=== PATIENT | female | born 1950 | race Caucasian/White ===

== ENCOUNTER 2018-08-30 04:59 | Emergency (ER) | payer OTHER ==
[~2018-08-30] VITALS: Ht 157.5 cm; Wt 42.2 kg
[~2018-08-30 04:59] MED LIST: BENTYL 20 MG TA20 M1 PO; CLONAZEPAM 1 MG1 M1 PO; DIFLUCAN200 MG PO; LASIX 40 MG TAB40 M2 PO; NABUMETONE 750750 M1 PO; ONDANSETRON HCL4 M2 PO; POTASSIUM99 M1 PO; PREMARIN0.625 MG PO; PREVACID15 MG PO; QVAR REDIHALE10.6 GM INH; REMERON15 MG PO; ROBAXIN 750 MG750 M1 PO; SAVELLA50 MG PO; THEO-24200 MG PO; VICODIN PO; VITAMIN D3400 UNIT PO; XANAX 0.25 MG0.25 MG PO; [UNRECOGNIZED DRUG - OTHER] PO
[2018-08-30 05:28] LABS: HEMATOCRIT 30.2 % (37.0-47.0); HEMOGLOBIN 10.2 gm/dL (12.0-15.0); MCH 31.2 pg (26.0-34.0); MCHC 33.7 g/dL (28.0-37.0); MCV 92.3 fL (80.0-100.0); RBC 3.27 mil/uL (4.20-5.00); RDW 12.6 % (10.5-14.5)
[2018-08-30 05:33] LABS: ANION GAP 7 mmol/L (7-16); BUN 15 mg/dL (7-18); CALCIUM 9.6 mg/dL (8.5-10.1); CHLORIDE 100 mmol/L (98-107); CO2 34 mmol/L (21-32); CREATININE 1.3 mg/dL (0.6-1.0); GLUCOSE 87 mg/dL (74-106); POTASSIUM 3.8 mmol/L (3.5-5.1); SODIUM 141 mmol/L (136-145)
[2018-08-30 05:41] LABS: ALBUMIN 2.9 g/dL (3.4-5.0); LIPASE 269 U/L (73-393); SGOT 17 U/L (15-37); SGPT 16 U/L (30-65); TOTAL BILIRUBIN 0.3 mg/dL (<0.1-1.0); TOTAL PROTEIN 6.9 g/dL (6.4-8.2); TROPONIN-I <0.06 ng/mL (<0.06)
[2018-08-30] MEDS ORDERED: OXYCONTIN10 M1 PO (06:22)
[2018-08-30 06:48] LABS: URINE BILIRUBIN NEGATIVE (Negative); URINE BLOOD NEGATIVE (Negative); URINE CLARITY CLEAR; URINE COLOR YELLOW; URINE GLUCOSE-RANDOM* NEGATIVE (Negative); URINE KETONES NEGATIVE (Negative); URINE LEUKOCYTES-REFLEX NEGATIVE (Negative); URINE NITRITE-REFLEX NEGATIVE (Negative); URINE PROTEIN (DIPSTICK) NEGATIVE (Negative); URINE UROBILINOGEN 0.2 E.U./dl (0.2-1.0)
[2018-08-30] MEDS ORDERED: BISACODYL SUPP10 MG RECTAL (07:48)
[2018-08-30] MEDS ORDERED: CITRATE OF MAG296 ML PO (07:48)
[2018-08-30] MEDS ORDERED: SENNA-DOCUSATE1 EAC1 PO (07:48)
[2018-08-30] MEDS ORDERED: ZOFRAN ODT4 MG PO (07:49)
[2018-08-30 08:09] VITALS: BP 146/55
--- NOTE | 2018-08-30 10:50 | EKG ---
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
== END 2018-08-30 08:09 | disposition still patient (30) ==
LOC: ER 04:59
PROVIDERS: Student in an Organized Health Care Education/Training Program
DX: K59.00 Constipation, unspecified (principal); M79.7 Fibromyalgia; G43.909 Migraine, unspecified, not intractable, without status migrainosus; K21.9 Gastro-esophageal reflux disease without esophagitis; J44.9 Chronic obstructive pulmonary disease, unspecified; M19.90 Unspecified osteoarthritis, unspecified site; Z90.710 Acquired absence of both cervix and uterus; Z88.1 Allergy status to other antibiotic agents; Z88.2 Allergy status to sulfonamides; Z88.6 Allergy status to analgesic agent; Z88.8 Allergy status to other drugs, medicaments and biological substances

== ENCOUNTER 2020-06-13 19:43 | Inpatient (IN) | payer OTHER ==
[~2020-06-13] VITALS: Ht 157.5 cm; Wt 52.2 kg
[2020-06-13 19:43] VITALS: BP 70/38
[~2020-06-13 19:43] MED LIST changes: +BISACODYL SUPP10 MG RECTAL; +CITRATE OF MAG296 ML PO; +OXYCONTIN10 M1 PO; +SENNA-DOCUSATE1 EAC1 PO; +ZOFRAN ODT4 MG PO
[2020-06-13 20:31] LABS: ABSOLUTE NEUTROPHILS 2.5 thou/uL (1.4-8.2); EOSINOPHILS 11.2 % (0.0-3.0); HEMATOCRIT 34.6 % (37.0-47.0); HEMOGLOBIN 11.7 gm/dL (12.0-15.0); LYMPHOCYTES 28.5 % (24.0-44.0); MCH 31.1 pg (26.0-34.0); MCHC 33.7 g/dL (28.0-37.0); MCV 92.2 fL (80.0-100.0); MONOCYTES 6.2 % (1.0-8.0); PLATELET COUNT 222 thou/uL (150-400); POLYS 53.1 % (36.0-66.0); RBC 3.76 mil/uL (4.20-5.00); RDW 12.2 % (10.5-14.5); WBC 4.7 thou/uL (4.0-11.0)
[2020-06-13 20:48] LABS: ANION GAP 7 mmol/L (7-16); BUN 24 mg/dL (7-18); CALCIUM 10.1 mg/dL (8.5-10.1); CHLORIDE 104 mmol/L (98-107); CO2 28 mmol/L (21-32); CREATININE 1.6 mg/dL (0.6-1.0); GLUCOSE 91 mg/dL (74-106); POTASSIUM 4.8 mmol/L (3.5-5.1); SODIUM 139 mmol/L (136-145)
[2020-06-13 21:05] LABS: ALBUMIN 4.1 g/dL (3.4-5.0); LIPASE 47 U/L (73-393); MAGNESIUM 1.9 mg/dL (1.8-2.4); SGOT 18 U/L (15-37); SGPT 21 U/L (30-65); TOTAL BILIRUBIN 0.3 mg/dL (0.2-1.0); TOTAL PROTEIN 7.5 g/dL (6.4-8.2); TROPONIN-I <0.06 ng/mL (<0.06)
[2020-06-13 21:05] LABS: URINE BILIRUBIN NEGATIVE (Negative); URINE BLOOD 1+ (Negative); URINE CLARITY CLEAR; URINE COLOR YELLOW; URINE GLUCOSE-RANDOM* NEGATIVE (Negative); URINE KETONES NEGATIVE (Negative); URINE LEUKOCYTES-REFLEX 3+ (Negative); URINE NITRITE-REFLEX NEGATIVE (Negative); URINE PROTEIN (DIPSTICK) TRACE (Negative); URINE SPECIFIC GRAVITY 1.025 (1.005-1.035); URINE UROBILINOGEN 0.2 E.U./dl (0.2-1.0)
[2020-06-13 21:13] LABS: AMP/METHAMP Negative (Negative); BARBITURATES Negative (Negative); BENZODIAZEPINES POSITIVE (Negative); COCAINE Negative (Negative); METHADONE Negative (Negative); OPIATES POSITIVE (Negative); PCP Negative (Negative)
[2020-06-13 21:17] LABS: SQUAMOUS 4-10 Moderate /LPF (0-3); URINE WBC-REFLEX >25 Many /HPF (0-5)
[2020-06-13 21:18] LABS: CASTS None Seen /LPF (None Seen); CRYSTALS None Seen /LPF (None Seen); URINE RBC 3-10 Few /HPF (0-2)
[2020-06-13 21:42] LABS: APTT 25.8 Seconds (24.5-32.8); PROTIME 10.7 Seconds (9.3-11.4)
[2020-06-13 21:56] VITALS: BP 123/55
[2020-06-13 22:09] VITALS: BP 143/64
[2020-06-13 22:35] VITALS: BP 147/104
[2020-06-14 02:17] LABS: HEMATOCRIT 35.1 % (37.0-47.0); HEMOGLOBIN 11.5 gm/dL (12.0-15.0); MCH 30.7 pg (26.0-34.0); MCHC 32.8 g/dL (28.0-37.0); MCV 93.8 fL (80.0-100.0); RBC 3.74 mil/uL (4.20-5.00); RDW 12.2 % (10.5-14.5); WBC 6.6 thou/uL (4.0-11.0)
[2020-06-14 02:28] LABS: ANION GAP 9 mmol/L (7-16); BUN 24 mg/dL (7-18); CALCIUM 9.6 mg/dL (8.5-10.1); CHLORIDE 104 mmol/L (98-107); CHOLESTEROL 165 mg/dL (<200); CO2 26 mmol/L (21-32); CREATININE 1.8 mg/dL (0.6-1.0); GLUCOSE 122 mg/dL (74-106); HDL CHOLESTEROL 45 mg/dL (>40); LDL CHOLESTEROL 90 mg/dL (<100); MAGNESIUM 1.8 mg/dL (1.8-2.4); SODIUM 139 mmol/L (136-145); TC:HDL 3.7 Ratio (Not establshd); TRIGLYCERIDE 154 mg/dL (<150); TROPONIN-I <0.06 ng/mL (<0.06); VLDL 31 mg/dL (<40)
--- NOTE | 2020-06-14 02:36 | NUR ---
PT ADMITTED TO THE FLOOR AROUND 2229, PT IS AWAKE, ALERT AND ORIENTEDX4, SR ON THE MONITOR, ADMISSION ASSESSMENTS CHARTED, UPON ASESSMENT PT IS RESTING COMFORTABLY IN BED, STILL COMPLAINS OF SOME CHEST PRESSURE AND GENERALIZED PAIN, ADMISSION EDUCATION GIVEN, WILL CONTINUE TO MONITOR
[2020-06-14 02:51] LABS: SERUM ASSESSMENT Slight Lipemia
[2020-06-14 05:50] VITALS: BP 136/75
--- NOTE | 2020-06-14 07:32 | EKG ---
[facility] [place] [address] ELECTROCARDIOGRAM REPORT Name: NEENA TELLEZ Room #: 210- ADM IN M.R.#: [id number] Admission: 06/13/20 Attend Phys: Tyler Davey MD Discharge: Date of : 52 Report #: [id number] THIS REPORT FOR: cc: Antolin Cote MD, William MD Santiago,Tony 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 /EPI
--- NOTE | 2020-06-14 08:09 | EKG ---
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
[2020-06-14 08:18] LABS: % SATURATION 30 % (20-39); IRON 92 ug/dL (50-170); TIBC 307 ug/dL (250-450)
[2020-06-14 08:30] VITALS: BP 157/79
--- NOTE | 2020-06-14 09:37 | 2DMMODE ---
[facility] [place] [address] 2 D/M-MODE ECHOCARDIOGRAM Name: NEENA TELLEZ Room #: 210-P ADM IN M.R.#: [id number] Admission: 06/13/20 Attend Phys: Tyler Davey MD Discharge: Date of : 52 Report #: [id number] THIS REPORT FOR: cc: Antolin Cote MD, William MD Santiago, Patrick MD [facility] ~ APPROVED REPORT Study performed: 06/14/2020 08:36:46 EXAM: Comprehensive 2D, Doppler, and color-flow Echocardiogram Patient Location: Echo lab Room #: 210 Status: routine BSA: 1.51 HR: 92 bpm BP: 136/75 mmHg Rhythm: NSR Other Information Study Quality: Fair Technically limited study due to lung artifact, thin body habitus. Indications Chest pain, SOB. Hx: VT 2D Dimensions RVDd: 26.82 mm IVSd: 8.96 (7-11mm) LVOT Diam: 19.56 (18-24mm) LVDd: 32.51 mm PWd: 7.40 (7-11mm) Ascending Ao: 29.04 (22-36mm) LVDs: 24.84 (25-40mm) Aortic Root: 23.96 mm Volumes Left Atrial Volume (Systole) Single Plane 4CH: 13.98 mL Single Plane 2CH: 20.37 mL LA ESV Index: 12.00 mL/m2 Aortic Valve AoV Peak Antonio.: 1.21 m/s AO Peak Gr.: 5.83 mmHg LVOT Max P.37 mmHg [facility] [address] [place] [address] 2 D/M-MODE ECHOCARDIOGRAM Name: NEENA TELLEZ Raisa Room #: 210-P [facility] IN .R.#: [id number] Admission: 06/13/20 Attend Phys: Tyler Davey MD Discharge: Date of : 52 Report #: [id number] LVOT Max V: 1.05 m/s KEVAN Vmax: 2.60 cm2 Mitral Valve E/A Ratio: 0.9 MV Decel. Time: 269.98 ms MV E Max Antonio.: 0.78 m/s MV A Antonio.: 0.87 m/s MV PHT: 78.29 ms IVRT: 96.89 ms Pulmonary Valve PV Peak Antonio.: 1.01 m/s PV Peak Gr.: 4.12 mmHg Pulmonary Vein P Vein S: 0.53 m/s P Vein A: 0.35 m/s P Vein D: 0.46 m/s P Vein A Dur.: 147.6 msec P Vein S/D Ratio: 1.15 Tricuspid Valve RAP Estimate: 5.00 mmHg Left Ventricle The left ventricle is normal size. There is normal LV segmental wall motion. There is normal left ventricular wall thickness. Left ventricular systolic function is normal. LVEF is 55-60%. Mild diastolic dysfunction is present (impaired relaxation pattern). Right Ventricle The right ventricle is normal size. The right ventricular systolic function is normal. Atria The left atrium size is normal. The right atrium size is normal. Aortic Valve The aortic valve is not well visualized. No aortic regurgitation is present. There is no aortic valvular stenosis. Mitral Valve The mitral valve is normal in structure. Trace mitral regurgitation. Tricuspid Valve [facility] [address] [place] [address] 2 D/M-MODE ECHOCARDIOGRAM Name: NEENA TELLEZ Raisa Room #: 210-P [facility] IN .R.#: [id number] Admission: 06/13/20 Attend Phys: Tyler Davey MD Discharge: Date of : 52 Report #: [id number] The tricuspid valve is normal in structure. There is no tricuspid valve regurgitation noted. Unable to assess PA pressure. Pulmonic Valve Pulmonic valve is not well visualized. Great Vessels The aortic root is normal in size. The ascending aorta is normal in size. IVC is normal in size and collapses >50% with inspiration. Pericardium There is no pericardial effusion. <Conclusion> Normal left ventricle size and wall thickness Grade 1 diastolic dysfunction EF 55%, no wall motion abnormality detected No significant valvular dysfunction detected Aortic valve was not well seen No tricuspid valve insufficiency therefore unable to assess PA systolic pressure No pericardial effusion <ELECTRONICALLY SIGNED> By: Tony Rojas MD, [facility] 06/14/20936 6 6 Tony Rojas MD, [facility] /INF
[2020-06-14 11:00] VITALS: BP 126/63
[2020-06-14 16:00] VITALS: BP 130/79
--- NOTE | 2020-06-14 18:16 | NUR ---
ASSESSMENTS AND INTERVENTIONS DOCCUMENTED. NO MAJOR CONCERNS THIS SHIFT. PATIENT GOING DOWN FOR VQ SCAN. C/O PAIN, MEDICATION GIVEN. PATIENT PROGRESSING TOWARDS GOALS AT THIS TIME EVIDENCE BY NO CHEST PAIN.
[2020-06-14 20:29] VITALS: BP 128/66
[2020-06-15] VITALS (8 sets, daily range): BP systolic 114–147; BP diastolic 63–85
--- NOTE | 2020-06-15 05:26 | NUR ---
assumed pt care at the chnage of shift, pt is awake, alert and orientedx4, sr on the monitor, assessments as charted, still c/o of dysuria, fluids infusing as orderd, c/o generalized pain of a 10/10, pain medicine given as per mar with partial, denies chest pain or sob, no acute events noted, no concerns at this time, will continue to monitor
[2020-06-15 05:40] LABS: HEMATOCRIT 29.9 % (37.0-47.0); HEMOGLOBIN 10.1 gm/dL (12.0-15.0); MCH 31.5 pg (26.0-34.0); MCHC 33.8 g/dL (28.0-37.0); MCV 93.1 fL (80.0-100.0); RBC 3.21 mil/uL (4.20-5.00); RDW 12.2 % (10.5-14.5); WBC 4.5 thou/uL (4.0-11.0)
[2020-06-15 05:48] LABS: CALCIUM 9.3 mg/dL (8.5-10.1); CREATININE 1.6 mg/dL (0.6-1.0); MAGNESIUM 1.9 mg/dL (1.8-2.4); POTASSIUM 4.4 mmol/L (3.5-5.1)
--- NOTE | 2020-06-15 11:39 | NUR ---
Chart reviewed and case discussed with the care team. HH/snf recommended per therapy. Discussed with the pt at bedside. She indicates that she lives in a 2 story home with her spouse however she has been living on the main level for over a year since her last surgery. She can avoid using the steps. Her spouse drives and does the errands and laundry. They have a cleaning service regularly. She feels her mobility issues are about at baseline but she has missed her fibromyaligia meds which has made her worse the past two days. Nursing advised to [facility] home med list. Pt is agreeable to and had it in the past. She can not recall the agency name and has no preference as long as they accept her ins and come to [place]. Referral called and faxed to [facility]. Pt has a cane and w/c at home. She is a&o4 but occasionally can not keep track of conversation. She declined SNF discussion or listing and prefers to dc home with . Plan dc home later today with . Awaiting confirmation from [facility]. Care team and the attending have been updated.
[2020-06-15] MEDS ORDERED: PULMICORT0.5 MG/22 INH (15:11)
[2020-06-15] MEDS ORDERED: IPRAT-ALBUT 0.5-3 ML INH (15:11)
[2020-06-15] MEDS ORDERED: NEBULIZER MISCELL (15:13)
--- NOTE | 2020-06-15 15:57 | NUR ---
FAXED DC ORDERS/SUMMARY TO [facility] HH SPOKE WITH JANET IN INTAKE THEY RECEIVED ORDERS AND WILL CALL PT TO SET UP VISITS.
--- NOTE | 2020-06-15 16:57 | NUR ---
ASSUMED CARE OF PT AT SHIFT CHANGE. ASSESSMENTS CHARTED MEDS GIVEN PER OCT. PT A&OX4, C/O PAIN 05/21, TREATED WITH IV MORPHINE WITH LITTLE RELIEF. PT SLEPT PART OF AFTERNOON, ATE A BIT OF BREAKFAST AND NO LUNCH. DISCHARGE ORDERS AND INSTRUCTIONS COMPLETE. THIS NURSE TOOK PT VIA WHEELCHAIR TO [facility] ENTRANCE WITH TO WAITING CAR.
== END 2020-06-15 16:50 | disposition home health service (06) | DRG 303 ==
LOC: ER 19:43 → 2N 21:31 → EROBS 21:31 → 2N 22:21
PROVIDERS: Emergency Medicine; Nurse Practitioner Adult Health; Nurse Practitioner Family; ADMIT Hospitalist; ATTEND Hospitalist
PROC: [UNRECOGNIZED PROCEDURE] (principal; 2020-06-14)
DX: I25.10 Atherosclerotic heart disease of native coronary artery without angina pectoris (principal); N17.9 Acute kidney failure, unspecified; N30.10 Interstitial cystitis (chronic) without hematuria; N18.9 Chronic kidney disease, unspecified; K21.9 Gastro-esophageal reflux disease without esophagitis; M79.7 Fibromyalgia; I34.1 Nonrheumatic mitral (valve) prolapse; I95.9 Hypotension, unspecified; D64.9 Anemia, unspecified; R07.89 Other chest pain; G89.4 Chronic pain syndrome; K58.9 Irritable bowel syndrome, unspecified; G25.81 Restless legs syndrome; G43.909 Migraine, unspecified, not intractable, without status migrainosus; J44.9 Chronic obstructive pulmonary disease, unspecified; Z90.710 Acquired absence of both cervix and uterus; Z79.899 Other long term (current) drug therapy; Z88.1 Allergy status to other antibiotic agents; Z88.2 Allergy status to sulfonamides; Z88.8 Allergy status to other drugs, medicaments and biological substances
CPT/HCPCS: 10081